=== PATIENT | female | born 1965 | race Caucasian/White ===

== ENCOUNTER 2018-12-02 09:17 | Outpatient (REF) | payer BC, SELFPAY ==
[2018-12-02 22:42] LABS: TSH 1.34 uIU/mL (0.358-3.74)
== END 2018-12-02 09:37 ==
LOC: NCHCN 09:17
PROVIDERS: PCP Family Medicine; Visit Provider Registered Nurse
DX: Z00.00 Encounter for general adult medical examination without abnormal findings (principal); F41.9 Anxiety disorder, unspecified; Z86.39 Personal history of other endocrine, nutritional and metabolic disease
CPT/HCPCS: 84443

== ENCOUNTER 2020-05-26 15:44 | Outpatient (REF) | payer BC, SELFPAY ==
[2020-05-26 21:13] LABS: Abs Immature Grans 0.02 10^3/uL (0.0-0.06); Absolute Basophil Count 0.02 10^3/uL (0.0-0.2); Absolute Eosinophil Count 0.12 10^3/uL (0.0-0.7); Absolute Lymphocyte Count 2.26 10^3/uL (1.2-3.4); Absolute Monocyte Count 0.76 10^3/uL (0.1-0.8); Absolute Neutrophil Count 3.34 10^3/uL (1.2-6.7); Basophils % 0.3; Eosinophils % 1.8; HCT 37.6 % (36.0-46.0); Immature Grans % 0.3; Lymphocytes % 34.7; MCH 32.3 pg (27.0-33.0); MCHC 34.6 % (32.0-36.0); MCV 93.5 fL (80-95); MPV 10.8 fL (8.0-11.0); Monocytes % 11.7; Neutrophils % 51.2; Nucleated RBC 0 %; Platelet Count 408 10^3/uL (130-400); RBC 4.02 10^6/uL (3.93-5.22); RDW-SD 41.8 fL; WBC 6.52 10^3/uL (4.4-10.8)
[2020-05-26 22:15] LABS: ALT 51 U/L (14-59); AST 25 U/L (15-37); Alkaline Phosphatase 70 U/L (46-116); Anion Gap 7.7 mmol/L (3-11); BUN 9 mg/dL (7-18); Bilirubin, Total 0.7 mg/dL (0.2-1.0); CO2 29.3 mmol/L (21.0-32.0); CREATININE 0.81 mg/dL (0.55-1.02); Calcium 8.9 mg/dL (8.5-10.1); Chloride 106 mmol/L (98-107); Glucose 101 mg/dL (74-106); Potassium 3.7 mmol/L (3.5-5.1); Sodium 143 mmol/L (136-145); Total Protein 6.6 g/dL (6.4-8.2)
== END 2020-05-26 16:04 ==
LOC: NCHCN 15:44
PROVIDERS: PCP Family Medicine; Visit Provider Registered Nurse
DX: R19.7 Diarrhea, unspecified (principal)
CPT/HCPCS: 80053; 85025

== ENCOUNTER 2020-10-20 18:43 | Outpatient (REF) | payer BC, SELFPAY ==
[2020-10-20 20:57] LABS: HCT 39.9 % (36.0-46.0); HGB 13.2 g/dL (11.2-15.7); MCH 32.4 pg (27.0-33.0); MCHC 33.1 % (32.0-36.0); MCV 97.8 fL (80-95); MPV 10.6 fL (8.0-11.0); Platelet Count 314 10^3/uL (130-400); RBC 4.08 10^6/uL (3.93-5.22); RDW 11.9 % (11.7-14.6); RDW-SD 43.3 fL
[2020-10-20 21:12] LABS: Anion Gap 5.5 mmol/L (3-11); BUN 12 mg/dL (7-18); CO2 30.5 mmol/L (21.0-32.0); CREATININE 0.8 mg/dL (0.55-1.02); Calcium 9.5 mg/dL (8.5-10.1); Chloride 103 mmol/L (98-107); Glucose 95 mg/dL (74-106); Potassium 4.1 mmol/L (3.5-5.1); Sodium 139 mmol/L (136-145)
== END 2020-10-20 19:03 ==
LOC: NCHCN 18:43
PROVIDERS: PCP Family Medicine; Visit Provider Nurse Practitioner Family
DX: R42 Dizziness and giddiness (principal)
CPT/HCPCS: 80048; 85027

== ENCOUNTER 2021-03-21 19:39 | Outpatient (REF) | payer BC, SELFPAY ==
[2021-03-21 14:28] LABS: Calculated LDL 104 mg/dL (<100); Cholesterol 186 mg/dL (<200); HDL Cholesterol 65 mg/dL (40-60); Triglyceride 85 mg/dL (<150)
[2021-03-21 21:03] LABS: Rheumatoid Factor <8.6 IU/mL (<12.0)
[2021-03-22 09:35] LABS: Cyclic Citrullinated Peptide <2.5 U/mL (<5.0)
== END 2021-03-21 19:40 | disposition home or self-care (01) ==
LOC: NCHCN 19:39
PROVIDERS: PCP Family Medicine; Visit Provider Registered Nurse
DX: Z13.220 Encounter for screening for lipoid disorders (principal); M25.50 Pain in unspecified joint
CPT/HCPCS: 80061; 86200; 86431

== ENCOUNTER 2021-03-30 14:26 | Outpatient (REF) | payer BC, SELFPAY ==
[2021-03-30 21:07] LABS: TSH (W/Ref FT4) 0.94 uIU/mL (0.36-3.74)
== END 2021-03-30 14:27 | disposition home or self-care (01) ==
LOC: NCHCN 14:26
PROVIDERS: PCP Family Medicine; Visit Provider Registered Nurse
DX: E04.2 Nontoxic multinodular goiter (principal); Z86.39 Personal history of other endocrine, nutritional and metabolic disease
CPT/HCPCS: 84443

== ENCOUNTER 2022-04-03 16:52 | Outpatient (REF) | payer OTHER, SELFPAY ==
[2022-04-03 15:12] LABS: Absolute Basophil Count 0.05 10^3/uL (0.0-0.2); Absolute Eosinophil Count 0.07 10^3/uL (0.0-0.7); Absolute Lymphocyte Count 2.28 10^3/uL (1.2-3.4); Absolute Neutrophil Count 2.83 10^3/uL (1.2-6.7); Basophils % 0.9; Eosinophils % 1.2; HCT 38.6 % (36.0-46.0); HGB 13.1 g/dL (11.2-15.7); Lymphocytes % 39.1; MCH 31.2 pg (27.0-33.0); MCHC 33.9 % (32.0-36.0); MCV 92 fL (80-95); MPV 11.2 fL (8.0-11.0); Monocytes % 10.3; Neutrophils % 48.5; Platelet Count 323 10^3/uL (130-400); RDW-SD 43.8 fL; WBC 5.83 10^3/uL (4.4-10.8)
[2022-04-03 15:51] LABS: TSH (W/Ref FT4) 0.52 uIU/mL (0.36-3.74)
[2022-04-04 05:28] LABS: Vitamin D 25 Total 58.7 ng/mL (30-100)
== END 2022-04-03 16:53 | disposition home or self-care (01) ==
LOC: NCHCN 16:52
PROVIDERS: PCP Family Medicine; Visit Provider Registered Nurse
DX: R53.83 Other fatigue (principal)
CPT/HCPCS: 82306; 84443; 85025

== ENCOUNTER 2023-02-28 15:00 | Outpatient (REF) | payer OTHER, SELFPAY ==
[2023-02-28 15:26] LABS: HCT 40.3 % (36.0-46.0); HGB 13.5 g/dL (11.2-15.7); MCH 32.1 pg (27.0-33.0); MCHC 33.5 % (32.0-36.0); MCV 96 fL (80-95); MPV 10.9 fL (8.0-11.0); Platelet Count 316 10^3/uL (130-400); RDW 12.6 % (11.7-14.6); RDW-SD 44.4 fL; WBC 5.19 10^3/uL (4.4-10.8)
[2023-02-28 16:13] LABS: ALT 24 U/L (14-59); AST 20 U/L (15-37); Albumin 4.4 g/dL (3.4-5.0); Alkaline Phosphatase 96 U/L (46-116); Anion Gap 8.3 mmol/L (3-11); BUN 9 mg/dL (7-18); Bilirubin, Total 1.2 mg/dL (0.2-1.0); CO2 27.7 mmol/L (21.0-32.0); Chloride 104 mmol/L (98-107); Glucose 99 mg/dL (74-106); Potassium 4.4 mmol/L (3.5-5.1); Sodium 140 mmol/L (136-145); TSH 0.55 uIU/mL (0.36-3.74); Total Protein 7.7 g/dL (6.4-8.2)
[2023-02-28 21:52] LABS: Rheumatoid Factor <8.6 IU/mL (<12.0)
[2023-03-03 09:56] LABS: Cyclic Citrullinated Peptide <2.5 U/mL (<5.0)
== END 2023-02-28 15:01 | disposition home or self-care (01) ==
LOC: NCHCN 15:00
PROVIDERS: PCP Family Medicine; Visit Provider Registered Nurse
DX: Z00.00 Encounter for general adult medical examination without abnormal findings (principal); R53.83 Other fatigue; N95.1 Menopausal and female climacteric states; M25.59 Pain in other specified joint; Z86.39 Personal history of other endocrine, nutritional and metabolic disease
CPT/HCPCS: 80053; 85027; 86200; 84443; 86431

== ENCOUNTER 2023-06-20 11:00 | Outpatient (REF) | payer OTHER, SELFPAY ==
[2023-06-20 14:16] LABS: Vitamin D 25 Total 60.5 ng/mL (30-100)
[2023-06-20 14:24] LABS: Calculated LDL 81 mg/dL (<100); Cholesterol 154 mg/dL (<200); HDL Cholesterol 61 mg/dL (40-60); Triglyceride 63 mg/dL (<150); Vitamin B12 399 pg/mL (193-986)
[2023-06-23 00:33] LABS: Anaplasma phagocytophilum Negative (Negative); B. miyamotoi PCR Negative (Negative); Babesia divergens/MO-1 Negative (Negative); Babesia duncani Negative (Negative); Babesia microti Negative (Negative); Ehrlichia chaffeensis Negative (Negative); Ehrlichia ewingii/canis Negative (Negative); Ehrlichia muris eauclairensis Negative (Negative)
[2023-06-23 09:51] LABS: Lyme Ab w Rflx to Lyme Confirm Negative (Negative)
== END 2023-06-20 11:01 | disposition home or self-care (01) ==
LOC: NCHCN 11:00
PROVIDERS: PCP Family Medicine; Visit Provider Family Medicine
DX: R53.83 Other fatigue (principal); F41.8 Other specified anxiety disorders
CPT/HCPCS: 80061; 82306; 87798; 82607; 82746; 86618

== ENCOUNTER 2024-06-08 20:39 | Outpatient (REF) | payer OTHER, SELFPAY ==
[2024-06-08 21:31] LABS: HCT 34.1 % (36.0-46.0); HGB 11.4 g/dL (11.2-15.7); MCH 31.8 pg (27.0-33.0); MCHC 33.4 % (32.0-36.0); MCV 95 fL (80-95); MPV 11.4 fL (8.0-11.0); Platelet Count 299 10^3/uL (130-400); RBC 3.59 10^6/uL (3.93-5.22); RDW 12.7 % (11.7-14.6); RDW-SD 44.1 fL; WBC 8.26 10^3/uL (4.4-10.8)
[2024-06-08 21:50] LABS: Anion Gap 7.2 mmol/L (3-11); BUN 12 mg/dL (7-18); CO2 28.8 mmol/L (21.0-32.0); CREATININE 0.9 mg/dL (0.55-1.02); Calcium 9.4 mg/dL (8.5-10.1); Chloride 105 mmol/L (98-107); Estimated GFR 73.19 (mL/min/1.73m2); Glucose 85 mg/dL (74-106); Magnesium 2.2 mg/dL (1.8-2.4); Potassium 4.2 mmol/L (3.5-5.1); Sodium 141 mmol/L (136-145); TSH (W/Ref FT4) 0.75 uIU/mL (0.36-3.74)
== END 2024-06-08 20:40 | disposition home or self-care (01) ==
LOC: NCHCN 20:39
PROVIDERS: PCP Family Medicine; Visit Provider Family Medicine
DX: R07.9 Chest pain, unspecified (principal)
CPT/HCPCS: 80048; 85027; 83735; 84443

== ENCOUNTER 2024-06-29 17:26 | Outpatient (REF) | payer OTHER, SELFPAY ==
[2024-06-29 21:34] LABS: Calculated LDL 59 mg/dL (<100); Cholesterol 154 mg/dL (<200); HDL Cholesterol 76 mg/dL (40-60); Triglyceride 97 mg/dL (<150)
== END 2024-06-29 17:27 | disposition home or self-care (01) ==
LOC: NCHCN 17:26
PROVIDERS: PCP Family Medicine; Visit Provider Family Medicine
DX: E78.5 Hyperlipidemia, unspecified (principal)
CPT/HCPCS: 80061